=== PATIENT | male | born 1955 | race Caucasian/White ===

== ENCOUNTER 2016-07-15 14:22 | Outpatient (CLI) | payer OTHER ==
--- NOTE | 2016-07-15 17:22 | DIAGNOSTIC IMAGING REPORT ---
PROCEDURE: MR CERVICAL SPINE W/O CONT INDICATION: Chronic neck pain with right radiculopathy. TECHNIQUE: Noncontrast T1, T2, and STIR sagittal images. T2 and gradient axial images. COMPARISON: None. FINDINGS: Normal alignment without fracture. Congenital fusion of C6 and C7. Severe disc vertebral degenerative changes from C3-4 to C5-6. Fatty endplate degenerative changes at C5-6 and C6-7. Normal craniocervical junction and cord. Paraspinal soft tissues are unremarkable. C2-3: Small disc bulge. No foraminal or spinal stenosis. C3-4: Small broad-based disc bulge/spur complex and facet arthropathy resulting in mild right foraminal stenosis. No spinal stenosis. C4-5: Small broad-based disc bulge/spur complex and facet arthropathy. There is severe right and mild left foraminal stenosis. No spinal stenosis. C5-6: Small broad-based disc bulge/spur complex and facet arthropathy. No foraminal or spinal stenosis. C6-7: No foraminal or spinal stenosis. C7-T1: Small broad-based disc bulge/spur complex resulting in mild bilateral foraminal stenosis. No spinal stenosis. IMPRESSION: 1. Severe degenerative changes with multilevel disc bulging 2. Congenital C6 and C7 fusion 3. Small C4-5 disc bulge with facet arthropathy resulting severe right and mild left foraminal stenosis 4. Mild right C3-4 and bilateral C7-T1 foraminal stenosis
== END 2016-07-15 23:00 ==
LOC: MRI SRH 14:22
DX: Q76.49 Other congenital malformations of spine, not associated with scoliosis (principal); M48.02 Spinal stenosis, cervical region; M50.30 Other cervical disc degeneration, unspecified cervical region